=== PATIENT | male | born 1970 ===

== ENCOUNTER 2017-06-06 17:19 | Emergency (ER) | payer OTHER ==
[2017-06-06 17:38] VITALS: O2SAT 97
--- NOTE | 2017-06-06 18:41 | C.PDOC ---
History Of Present Illness The patient is a 46yo male, no pertinent medical history, presents to the ED for evaluation of 2-3 months of right sided strange facial sensation with multiple tics under right eye, for several months, becoming more frequent. Pt reports he was seen in this facility in 09/2016 and was treated for bells palsy and discharged home with a tapering dose of prednisone and instructions to follow up; pt states he never followed up as his symptoms were getting better. Pt reports his current symptoms are sometimes numb, sometimes tight, swollen sensation. He states no specific reasons for his presentation today; denies any headache, fever, blurry vision, dizziness. Pt currently offers no additional medical complaints. PCP: None provided Time Seen by Provider: 06/06/17 17:43 Chief Complaint (Nursing): Medical Clearance History Per: Patient History/Exam Limitations: no limitations Onset/Duration Of Symptoms: Persistent Past Medical History Reviewed: Historical Data, Nursing Documentation, Vital Signs Vital Signs: Last Vital Signs Temp 98.2 F 06/06/17 17:33 Pulse 58 L 06/06/17 17:33 Resp 18 06/06/17 17:33 BP 112/72 06/06/17 17:33 Pulse Ox 97 06/06/17 19:49 - Medical History PMH: No Chronic Diseases Surgical History: No Surg Hx Family History: States: Unknown Family Hx - Social History Hx Alcohol Use: No Hx Substance Use: No - Immunization History Hx Tetanus Toxoid Vaccination: No Hx Influenza Vaccination: No Hx Pneumococcal Vaccination: No Review Of Systems Constitutional: Negative for: Fever Eyes: Negative for: Vision Change Neurological: Negative for: Headache Physical Exam - Physical Exam Appears: Well, Non-toxic Skin: Normal Color Head: Other (patient able to raise both eyebrows equally) Eye(s): bilateral: Normal Inspection, PERRL, EOMI, Other (pt able to close eyes fully and tightly) Neck: Normal Cardiovascular: Rhythm Regular Respiratory: Normal Breath Sounds Neurological/Psych: Oriented x3, Normal Speech, Normal Cognition, Normal Cranial Nerves (slight left facial droop, otherwise cranial nerves intact), Normal Motor, Normal Sensation Gait: Steady ED Course And Treatment O2 Sat by Pulse Oximetry: 97 Medical Decision Making Medical Decision Making: Time: 1741 Impression: Plan: -- CT Head -- Reassess Time: 1913 CT Head IMPRESSION: No acute intracranial abnormality If there is suspicion for acute stroke, MRI advised. pt to be discharged with f/u in med clinci with neuro referral. pt understands plan for out patient follow/up. Disposition Counseled Patient/Family Regarding: Studies Performed, Diagnosis, Need For Followup - Disposition Referrals: [facility] [Outside] [facility] [Outside] Disposition: HOME/ ROUTINE Disposition Time: 20:10 Condition: STABLE Additional Instructions: Por favor, siga con la clnica mdica para max remisin de neurologa. Llame a la clnica el lunes para hacer max macario. Regrese a ER para cualquier empeoramiento de los sntomas. Forms: Gen Discharge Inst Greek, [facility] [employer] (Greek) - Clinical Impression Clinical Impression: Facial tic
--- NOTE | 2017-06-06 20:22 | CT ---
EXAM: CT Head Without Intravenous Contrast CLINICAL HISTORY: 46 years old, male; Signs and symptoms; Numbness / parasthesia; Right; Additional info: Right facial numbness, small left facial droop TECHNIQUE: Axial computed tomography images of the head/brain without intravenous contrast. All CT scans at this facility use one or more dose reduction techniques, viz.: automated exposure control; ma/kV adjustment per patient size (including targeted exams where dose is matched to indication; i.e. head); or iterative reconstruction technique. Coronal and sagittal reformatted images were created and reviewed. EXAM DATE/TIME: 06/06/2017 6:00 PM COMPARISON: There are no prior studies for comparison. FINDINGS: Brain: Ventricles are normal in size and configuration. There is no midline shift. There are no intra-axial or extra-axial mass lesions or areas of hemorrhage. There are no abnormal fluid collections. There is mild prominence of extra-axial spaces over the convexities Alfonso-white differentiation is maintained. Ventricles: See above. Bones: Cranial vault is intact. Soft tissues: unremarkable Sinuses: There is no acute sinusitis. Ears and mastoids: Middle ears and mastoids are unremarkable Orbits: Orbital contents are unremarkable. IMPRESSION: No acute intracranial abnormality If there is suspicion for acute stroke, MRI advised
[2017-06-06 20:27] VITALS: BP 100/59; PULSE 50; RESP 20; TEMP 97.9
== END 2017-06-06 20:28 | disposition home or self-care (01) ==
LOC: C.ER 17:19
DX: F95.8 Other tic disorders (principal)